=== PATIENT | male | born 1945 | race Caucasian/White ===

== ENCOUNTER 2017-03-31 07:11 | Day surgery (SDC) | payer MEDICARE, OTHER ==
[~2017-03-31] VITALS: Ht 182.9 cm; Wt 88.6 kg
[~2017-03-31 07:11] MED LIST: ATOR40TA78 PO; HYDR25TA6 PO; PANT40TA5 PO; TAMS-11 PO; [UNRECOGNIZED DRUG - OTHER] PO
[2017-03-31] MEDS ORDERED: LACTATED RINGERS 1,000 ML IV SCH (07:43)
[2017-03-31 07:44] VITALS: BP 148/80
[2017-03-31] MEDS ORDERED: LIDOCAINE 1%, 2ML SQ PRN (08:00)
[2017-03-31] MEDS ORDERED: FENTANYL PF 100 MCG/2ML ONE (08:17)
[2017-03-31] MEDS ORDERED: MIDAZOLAM 1 MG/ML, 2ML ONE (08:17)
[2017-03-31] MEDS ORDERED: DEXAMETHASONE 4 MG/ML, 1ML ONE ×2 (08:23)
[2017-03-31] MEDS ORDERED: ONDANSETRON 2MG/ML, 2ML ONE (08:23)
[2017-03-31] MEDS ORDERED: PROPOFOL 10 MG/ML, 20ML ONE (08:23)
[2017-03-31 08:36] LABS: ASPARTATE AMINO TRANSFERASE 20 U/L (15-37); BLOOD UREA NITROGEN 10 mg/dL (7-18)
[2017-03-31] MEDS ORDERED: SUCCINYLCHOLINE 20 MG/ML, 10ML ONE (08:55)
[2017-03-31] MEDS ORDERED: PROMETHAZINE 25 MG/ML, 1ML IV PRN (09:00)
[2017-03-31] MEDS ORDERED: FENTANYL PF 100 MCG/2ML IV PRN (09:00)
[2017-03-31] MEDS ORDERED: ACETAMINOPHEN 325 MG TABLET PO PRN (09:00)
[2017-03-31] MEDS ORDERED: MEPERIDINE/PF 25MG/0.5ML IVPush PRN (09:00)
[2017-03-31] MEDS ORDERED: KETOROLAC 30 MG/1 ML IV PRN (09:00)
[2017-03-31] MEDS ORDERED: LABETALOL 5MG/ML, 20ML IV PRN (09:00)
[2017-03-31] MEDS ORDERED: OXYcodone 5 MG/5 ML ORAL.SOL UDC PO PRN (09:00)
[2017-03-31] MEDS ORDERED: HYDROmorphone 1 MG/ML, 1ML IV PRN (09:00)
[2017-03-31] MEDS ORDERED: ONDANSETRON 2MG/ML, 2ML IVPush PRN (09:00)
[2017-03-31] MEDS ORDERED: PROMETHAZINE 25MG TABLET PO PRN (11:00)
[2017-03-31] MEDS ORDERED: PROMETHAZINE 25MG TABLET ONE (11:02)
== END 2017-03-31 11:45 ==
LOC: OUT 07:11
PROVIDERS: ATTEND Internal Medicine
DX: K22.711 Barrett's esophagus with high grade dysplasia (principal); K31.1 Adult hypertrophic pyloric stenosis; I10 Essential (primary) hypertension; I25.10 Atherosclerotic heart disease of native coronary artery without angina pectoris
CPT/HCPCS: 36415; 43237; 43270; 80053; 93005; C1725; J0330; J1100; J2250; J2405; J2704; J3010

== ENCOUNTER 2017-06-02 08:54 | Day surgery (SDC) | payer OTHER ==
[~2017-06-02] VITALS: Ht 182.9 cm; Wt 90.5 kg
[2017-06-02] MEDS ORDERED: LACTATED RINGERS 1,000 ML IV SCH (09:29)
[2017-06-02] MEDS ORDERED: LIDOCAINE 1%, 2ML SQ PRN (09:30)
[2017-06-02] MEDS ORDERED: LIDOCAINE 1%, 2ML ONE (09:31)
[2017-06-02 09:35] VITALS: BP 166/83
[2017-06-02] MEDS ORDERED: PLEASE ENTER HEIGHT AND WEIGHT MC SCH (09:37)
[2017-06-02] MEDS ORDERED: PROPOFOL 10 MG/ML, 20ML ONE (09:59)
[2017-06-02] MEDS ORDERED: FENTANYL PF 100 MCG/2ML ONE (10:58)
[2017-06-02] MEDS ORDERED: ACETAMINOPHEN 650 MG/20.3 ML UDC ONE (10:58)
[2017-06-02] MEDS ORDERED: OXYcodone 5 MG/5 ML ORAL.SOL UDC ONE (10:58)
[2017-06-02] MEDS: FENTANYL PF 100 MCG/2ML IV PRN ×2 (11:00→11:10)
[2017-06-02] MEDS ORDERED: OXYcodone 5 MG/5 ML ORAL.SOL UDC PO PRN (11:30)
[2017-06-02] MEDS ORDERED: ACETAMINOPHEN 325 MG TABLET PO PRN (11:30)
== END 2017-06-02 12:40 | disposition home or self-care (01) ==
LOC: OUT 08:54
PROVIDERS: ATTEND Internal Medicine
DX: K22.711 Barrett's esophagus with high grade dysplasia (principal); K31.1 Adult hypertrophic pyloric stenosis; I10 Essential (primary) hypertension; I25.10 Atherosclerotic heart disease of native coronary artery without angina pectoris; Z95.5 Presence of coronary angioplasty implant and graft; Z79.899 Other long term (current) drug therapy
CPT/HCPCS: 43270; J2704; J3010; J7120

== ENCOUNTER 2017-07-28 08:18 | Day surgery (SDC) | payer OTHER ==
[~2017-07-28] VITALS: Ht 182.9 cm; Wt 91.1 kg
[2017-07-28] MEDS ORDERED: VITAMIN D PO (08:51)
[2017-07-28] MEDS ORDERED: LACTATED RINGERS 1,000 ML IV SCH (08:51)
[2017-07-28 08:53] VITALS: BP 154/78
[2017-07-28] MEDS ORDERED: LIDOCAINE-MPF 1%, 2ML INFIL ONE (09:00)
[2017-07-28] MEDS ORDERED: PLEASE ENTER HEIGHT AND WEIGHT MC SCH (09:00)
[2017-07-28 09:04] VITALS: BP 154/78
[2017-07-28] MEDS ORDERED: PROPOFOL 10 MG/ML, 20ML ONE ×3 (09:29→09:52)
[2017-07-28 09:30] LABS: ALANINE AMINOTRANSFERASE 28 U/L (12-78); ALBUMIN 3.5 g/dL (3.4-5.0); ANION GAP 7 mmol/L (5-15); CALCIUM 8.5 mg/dL (8.5-10.1); CHLORIDE 107 mmol/L (98-107); CREATININE 1.15 mg/dL (0.7-1.3)
[2017-07-28 09:32] LABS: ALKALINE PHOSPHATASE 70 U/L (45-117); BILIRUBIN,TOTAL 0.6 mg/dL (0.2-1.0); TOTAL PROTEIN 6.6 g/dL (6.4-8.2)
[2017-07-28] MEDS ORDERED: LIDOCAINE-MPF 2% ,5ML ONE (09:33)
[2017-07-28] MEDS ORDERED: FENTANYL PF 100 MCG/2ML IV PRN (10:30)
[2017-07-28] MEDS ORDERED: ONDANSETRON 2MG/ML, 2ML IVPush PRN (10:30)
== END 2017-07-28 11:05 ==
LOC: OUT 08:18
PROVIDERS: ATTEND Internal Medicine Geriatric Medicine
DX: K22.719 Barrett's esophagus with dysplasia, unspecified (principal); K21.9 Gastro-esophageal reflux disease without esophagitis; Z95.5 Presence of coronary angioplasty implant and graft; Z79.899 Other long term (current) drug therapy; I10 Essential (primary) hypertension; I25.10 Atherosclerotic heart disease of native coronary artery without angina pectoris
CPT/HCPCS: 36415; 43270; 80053; 93005; J2704; J7120; J3490